=== PATIENT | male | born 1985 | race Caucasian/White ===

== ENCOUNTER 2016-05-11 16:20 | Emergency (ER) | payer OTHER ==
[~2016-05-11] VITALS: Ht 188 cm; Wt 100.0 kg
[2016-05-11 16:22] VITALS: BP 111/65; PULSE 61; TEMP 36.5; O2SAT 96; Ht 188 cm; Wt 100.0 kg
[2016-05-11] MEDS ORDERED: SULF800T23 PO (16:51)
--- NOTE | 2016-05-11 17:24 | EMERGENCY ROOM VISIT NOTE ---
History First contact with patient: 16:26 Chief Complaint: TOE PAIN, INJURY Stated Complaint: INFECTED BIG TOE, LEFT FOOT History of Present Illness The patient is a 30 year old male who presents to the Emergency Room with complaints of infection of his left great toe. The patient states that he ran a marathon few months ago, and then his left great toenail turned black. He states the toenail fell off about 3 weeks ago, and ever since he has had some redness of the toe. At times he will have a yellow drainage/discharge from the toe. He has not had fever or chills. He is not diabetic and does not have a history of gout. He rates his discomfort a 3/10. Review of Systems More than 10 systems were reviewed and otherwise negative with the exception of history of present illness. Past Medical/Surgical History No chronic medical disease Family History No pertinent family history Social History Smoking Status: Never Smoker Housing Status: lives with family Current/Historical Medications Scheduled Sulfamethoxazole-Trimethoprim (Bactrim Ds 800MG/160MG), 1 TAB PO BID Allergies Coded Allergies: No Known Allergies (Unverified , 05/11/16) Physical Exam Vital Signs Date Time Temp Pulse Resp B/P Pulse Ox O2 Delivery O2 Flow Rate FiO2 05/11/16 16:22 36.5 61 16 111/65 96 Pain Rating (0-10): 0 Physical Exam VITALS: Vitals are noted on the nurse's note and reviewed by myself. Vital signs stable. GENERAL: Well-developed, well-nourished, white male, who is in no acute distress and resting comfortably. Patient is cooperative with the examination. HEAD: Normocephalic atraumatic. HEART: Regular rate and rhythm without murmurs gallops or rubs. LUNGS: Clear to auscultation bilaterally without wheezes, rales or rhonchi. No retractions or accessory muscle use. SKIN: The toenail of the great toenail on the left appears to be growing slightly. There is some medial edema but no obvious abscess or drainage tenderness of the joints. Medical Decision & Procedures ED Course Physical exam and history were performed. Nursing notes and EMR were reviewed. Patient appears to have an ingrown toenail of his left great toe. There does not appear to be an obvious abscess that needs incised and drained. The patient will be given a course of Bactrim for his symptoms. He was given information for local podiatry services by case management my request. The patient was otherwise instructed on conservative measures and invited back to the ER with any new, worsening, or concerning symptoms. The chart was completed utilizing [employer] Voice Recognition Software. Grammatical errors, random word insertions, pronoun errors, and incomplete sentences are an occasional consequence of this system due to software limitations, ambient noise, and hardware issues. Any formal questions or concerns about the content, text, or information contained within the body of this dictation should be directly addressed to the provider for clarification. . Medical Decision Differential diagnosis: Etiologies such as cellulitis, abscess, MRSA infection, DVT, necrotizing fasciitis, dermatitis, drug eruption, as well as others were entertained.. Impression Primary Impression: Ingrowing toenail of left foot Departure Information Dispostion Home / Self-Care Condition GOOD Prescriptions Sulfamethoxazole-Trimethoprim (Bactrim Ds 800MG/160MG) 1 Tab Tab 1 TAB PO BID for 10 Days, #20 TAB Prov: Shan Rivas PA-C 05/11/16 Forms HOME CARE DOCUMENTATION FORM, IMPORTANT VISIT INFORMATION Patient Instructions My [facility] Additional Instructions You were seen and evaluated today on an emergency basis only. This is not a substitute for, or an effort to provide, complete comprehensive medical care. It is not possible to recognize and treat all injuries or illnesses in a single emergency department visit. For this reason it is recommended that you followup with Podiatry with ongoing or persistent symptoms. For baseline pain relief you may alternate ibuprofen and acetaminophen every 4 hours for pain control. Take 600 mg ibuprofen (Advil) and then 4 hours later take 1000 mg acetaminophen (Tylenol). Do not take more than 3000 mg acetaminophen in a single day. Trimethoprim-Sulfamethoxazole(Bactrim DS): Take one pill twice daily for 10 days for your skin infection. All antibiotics can cause diarrhea. If this occurs and you feel worse or it does not resolve in 1-2 days follow up with your doctor or return to the Emergency Department as this could be signs of serious underlying problems. Any medication can cause an allergic reaction, stop the pills immediately and return to the ER for rash, hives, breathing difficulties, or swelling. You are welcome to return to the emergency department anytime with new, worsening, or concerning symptoms.
== END 2016-05-11 17:00 | disposition home or self-care (01) ==
LOC: C.EDB 16:22 → C.EDD 17:00
DX: L60.0 Ingrowing nail (principal)